=== PATIENT | male | born 1970 | race Caucasian/White ===

== ENCOUNTER 2018-03-22 23:55 | Emergency (ER) | payer BC ==
[~2018-03-22] VITALS: Ht 182.9 cm; Wt 104.3 kg
[2018-03-23] MEDS ORDERED: UNOBMED (00:01)
[2018-03-23 00:30] VITALS: BP 135/75
--- NOTE | 2018-03-23 00:32 | Emergency Room Report ---
History of Present Illness General Chief Complaint: Altered Level of Consciousness Source: EMS Present Illness HPI This is a 48-year-old male brought in by EMS for alcohol intoxication and vomiting. He was at a nearby [place] restaurant that has a [id number] and all he can drink menu. Initially he was there with some friends but he was left by himself. Going to staff, he was drinking heavily and eating copiously. He was vomiting. Unable to get up so they called 911. There was no trauma. Unable to get history from patient because he was so intoxicated. Allergies: Coded Allergies: UNABLE TO ASSESS (Unverified , 03/23/18) Patient History Past Medical History: see triage record, old chart reviewed, unable to obtain Past Surgical History: unable to obtain Pertinent Family History: unable to obtain Social History: Reports: alcohol use Immunizations: other Reviewed Nursing Documentation: PMH: Agreed; PSxH: Agreed Review of Systems Gastrointestinal: Reports: nausea, vomiting All Other Systems: limited - secondary to intoxication Physical Exam Vital Signs Date Time Temp Pulse Resp B/P (MAP) Pulse Ox O2 Delivery O2 Flow Rate FiO2 03/22/18 23:58 97.5 62 16 138/85 94 Room Air 97.5 vitals stable Sp02 EP Interpretation: reviewed, normal General Appearance: well appearing, no apparent distress, other - very intoxicated Head: normocephalic, atraumatic Eyes: bilateral eye PERRL, bilateral eye EOMI ENT: hearing grossly normal, normal pharynx Neck: full range of motion, supple, no meningismus Respiratory: chest non-tender, lungs clear, normal breath sounds Cardiovascular #1: regular rate, rhythm, no murmur Gastrointestinal: normal bowel sounds, non tender, no mass, no organomegaly, no bruit, non-distended Musculoskeletal: back normal, normal range of motion Neurologic: grossly normal Skin: warm/dry Medical Decision Making Diagnostic Impression: Primary Impression: Altered level of consciousness Additional Impression: Alcohol intoxication Qualified Codes: F10.920 - Alcohol use, unspecified with intoxication, uncomplicated ER Course Patient with alcohol intoxication. No evidence of trauma to warrant x-ray or CT scan. We'll observe until clinical sobriety. Last Vital Signs Date Time Temp Pulse Resp B/P (MAP) Pulse Ox O2 Delivery O2 Flow Rate FiO2 03/22/18 23:58 97.5 62 16 138/85 94 Room Air 97.5 Status: improved Disposition: HOME, SELF-CARE Condition: Stable Referrals: NOT CHOSEN IPA/MD,REFERRING (PCP) Additional Instructions: Abstain from drinking to excess. Follow-up with your doctor in 7 days. Return if worse. COOKIE MONTGOMERY M.D. March 23, 2018 00:32
[2018-03-23 02:08] VITALS: BP 117/73
[2018-03-23 04:48] VITALS: BP 123/82
[2018-03-23 04:49] VITALS: BP 117/73
== END 2018-03-23 04:49 | disposition home or self-care (01) ==
LOC: EDBD 23:55 → EMR 03-23 00:14
DX: F10.129 Alcohol abuse with intoxication, unspecified (principal); R41.82 Altered mental status, unspecified; R11.2 Nausea with vomiting, unspecified
CPT/HCPCS: 36415; 96361; 96374; 99284; G0480; J2405; 80329